=== PATIENT | male | born 1995 | race Caucasian/White ===

== ENCOUNTER 2017-03-05 08:19 | Day surgery (SDC) | payer BC ==
[~2017-03-05] VITALS: Ht 348 cm; Wt 101.0 kg
[2017-03-05] VITALS (14 sets, daily range): BP systolic 106–136; BP diastolic 46–71; PULSE 48–80; RESP 15–20; Ht 348 cm; Wt 101.0 kg
[2017-03-05] MEDS ORDERED: D-ME473S2 PO (08:46)
[2017-03-05] MEDS ORDERED: ALBU8.5H3 INH (08:46)
[2017-03-05 09:20] LABS: BASOPHILS % 0.6 % (0.0-2.0); EOSINOPHILS # 0.1 10^3/ul (0.0-0.5); EOSINOPHILS % 1.4 % (0.0-7.0); HEMATOCRIT 42.5 % (42.0-52.0); HEMOGLOBIN 15.2 g/dl (14.0-18.0); LYMPHOCYTES # 1.7 10^3/ul (0.8-2.9); LYMPHOCYTES % 24.4 % (18.0-55.0); MEAN CORPUSCULAR HEMOGLOBIN 32.5 pg (29.0-33.0); MEAN CORPUSCULAR HGB CONC 35.8 g/dl (32.0-37.0); MEAN PLATELET VOLUME 9.8 fl (7.4-10.4); MONOCYTE # 0.5 10^3/ul (0.3-0.9); MONOCYTES % 6.9 % (0.0-13.0); NEUTROPHIL # 4.7 10^3/ul (1.6-7.5); NEUTROPHILS % 66.3 % (30.0-74.0); PLATELET COUNT 279 10^3/UL (140-415); RED BLOOD COUNT 4.67 10^6/ul (4.70-6.10); RED CELL DISTRIBUTION WIDTH 12.7 % (11.5-14.5); WHITE BLOOD COUNT 7.1 10^3/ul (4.8-10.8)
[2017-03-05] MEDS ORDERED: PROCHLORPERAZINE 10 MG INJ IV PRN (09:30)
[2017-03-05] MEDS ORDERED: HYDROmorphONE (0.2 MG/ML) 10ML SYG IV PRN (09:30)
[2017-03-05] MEDS ORDERED: ONDANSETRON 4 MG INJ IV PRN (09:30)
[2017-03-05] MEDS ORDERED: FENTAnyl 50 MCG/ML VIAL IV PRN (09:30)
[2017-03-05] MEDS ORDERED: OXYCODONE/ACETAMINOPHEN (5/325) TAB PO PRN (09:30)
[2017-03-05] MEDS ORDERED: DIPHENHYDRAMINE 50 MG INJ IV PRN (09:30)
[2017-03-05] MEDS ORDERED: MEPERIDINE 25 MG INJ IV PRN (09:30)
[2017-03-05 09:32] LABS: ALBUMIN 5.2 g/dl (3.3-4.9); ALBUMIN/GLOBULIN RATIO 1.44; BILIRUBIN,INDIRECT 0.3 mg/dl (0-1.1); BILIRUBIN,TOTAL 0.3 mg/dl (0.2-1.3); TOTAL PROTEIN 8.8 g/dl (6.1-8.1)
[2017-03-05] MEDS ORDERED: FENTAnyl 50 MCG/ML VIAL ONE (09:42)
[2017-03-05] MEDS ORDERED: LIDOCAINE 2% (SDV) 5 ML INJ ONE (09:42)
[2017-03-05] MEDS ORDERED: MIDAZOLAM 1 MG/ML 2 ML INJ ONE (09:42)
[2017-03-05] MEDS ORDERED: PROPOFOL 20 ML ONE (09:42)
[2017-03-05 09:50] LABS: CALCIUM 10.2 mg/dl (8.4-10.2); CREATININE 0.78 mg/dl (0.61-1.24); POTASSIUM 4.3 mmol/L (3.5-5.1)
[2017-03-05 09:59] LABS: PROTIME 12.6 Sec (12.2-14.2)
[2017-03-05 10:00] LABS: INR 0.94
[2017-03-05] MEDS ORDERED: CEFAZOLIN 1 GM INJ ONE (10:00)
[2017-03-05] MEDS ORDERED: ONDANSETRON 4 MG INJ ONE (10:00)
[2017-03-05] MEDS ORDERED: METOCLOPRAMIDE 10 MG INJ ONE (10:00)
--- NOTE | 2017-03-05 10:31 | OPR ---
Date/Time of Note Date/Time of Note DATE: 03/05/17 TIME: 10:29 Operative Report Preoperative Diagnosis hematuria Postoperative Diagnosis hematuria, urethral stricture, bladder lesion Operation/Procedure Performed cysto, urethral dialtion, removal small bladder lesion Surgeon: MARLY MEJIA Anesthesia: general Estimated Blood Loss: none Specimens bladder - posterior wall Complications: None MARLY MEJIA Mar 05, 2017 10:31
--- NOTE | 2017-03-05 10:32 | PDOCDIS ---
Discharge Instructions CONDITION Patient Condition: Good HOME CARE INSTRUCTIONS: Diet Instructions: Regular ACTIVITY: Activity Restrictions: No Restrictions FOLLOW UP/APPOINTMENTS Follow-up Plan 2 weeks, calll for time OTHER ORDERS: Other Orders: dc to home when awake and stable, does not need to void before going home SCHOOL/WORK RELEASE May return to School/Work on: Mar 19, 2017 MARLY MEJIA Mar 05, 2017 10:32
--- NOTE | 2017-03-05 11:28 | HP ---
DATE OF ADMISSION: 03/05/2017 HISTORY OF PRESENT ILLNESS: Angel is a 21-year-old male who noted microhematuria. Denies any history of gross hematuria. The patient has autism, previously underwent a CT scan of the upper tracts which raises the question of a punctate calculi. Additionally a heterogeneous prostate was noted. The patient has been unable to tolerate a cystoscopy in the office and he now presents for cysto under anesthesia, possible bladder biopsy. PAST MEDICAL HISTORY: Autism. PAST SURGICAL HISTORY: None. FAMILY HISTORY: Noncontributory. SOCIAL HISTORY: The patient does not smoke. Patient does not think. ALLERGIES: HE HAS NO ALLERGIES. MEDICATIONS: None. PHYSICAL EXAMINATION: LUNGS: Good breath sounds bilaterally. HEART: Regular rate and rhythm. ABDOMEN: Soft, nondistended, nontender. No palpable masses. BACK: No CVA tenderness. No masses. GENITALIA: Normal shaft of penis. Normal testicles. IMPRESSION: Micro hematuria. PLAN: Cystoscopy under anesthesia with possible biopsy. How the procedure is performed, potential complications, side-effects, potential for perforation, tear of the urethra, urinary retention, infection, bleeding, possible secondary procedure or injury to other organs have all been reviewed. They understand the above and would like to proceed. Dictated By: Thanh Da Silva MD /anna/buzz /Document#: [id number]
--- NOTE | 2017-03-05 12:30 | OPR ---
DATE OF OPERATION: 03/05/2017 PREOPERATIVE DIAGNOSIS: Microhematuria. POSTOPERATIVE DIAGNOSES: 1. Microhematuria. 2. Urethral stricture. 3. Bladder lesion. PROCEDURE: 1. Cystoscopy. 2. Urethral dilatation. 3. Removal of small bladder lesion on posterior wall. SURGEON: Thanh Da Silva MD ANESTHESIA: General. COMPLICATIONS: None. BLOOD ADMINISTRATION: None. DRAINS: None. OPERATIVE FINDINGS AT SURGERY: Urethral stricture and bladder lesion. HISTORY: The patient is a 22-year-old male with microhematuria and autism, presents for cystoscopy under anesthesia, possible bladder biopsy. The procedure performed, risks, potential complications have been reviewed with the patient and his parents. They would like to proceed. PROCEDURE: Patient was brought into the operating room and placed on operating room table in a supine lithotomy position. He was prepped and draped usual fashion, after anesthesia was induced. A time-out was undertaken, and pressure points were padded. He received preoperative antibiotic therapy and sequential compression devices were applied. Rigid cystoscopy was undertaken with 12-degree, 30-degree and 70- degree angle lens in the anterior urethra. Urethral stricture was identified, and subsequently dilated with male sounds which then allowed for repeat cystoscopy. The prostate was within normal limits. There is mild enlargement of the lateral lobes. The bladder was inspected in a systematic fashion. Bilateral ureteral orifices within normal limits. The bladder was inspected in a systematic fashion. On the posterior wall was raised, irregular, small erythematous region which was biopsied and then coagulated. No other portions of the lesion could then be appreciated. Bladder was reinspected. No other abnormalities could be appreciated. There were no foreign bodies or discrete papillary tumor. No active bleeding could be appreciated. His bladder was emptied, and he was transferred to recovery room in stable condition. Discharged to home on Tylenol number 3, 1-2 tabs p.o. Q 8 hours, dispense number 20, no refills. He will follow up in the office in 2 weeks' time to discuss pathology results. Further intervention and evaluation pending clinical course and results of above. Dictated By: Thanh Da Silva MD /anna/ec /Document#: [id number]
== END 2017-03-05 12:27 | disposition home or self-care (01) ==
LOC: SDS 08:19
PROVIDERS: ATTEND Urology
DX: R31.29 Other microscopic hematuria (principal); N35.9 Urethral stricture, unspecified; J45.909 Unspecified asthma, uncomplicated
CPT/HCPCS: 52224; 52281; 80053; 85025; 85610; 85730; 88305; J0690; J2250; J2405; J2765; J3010; Z7512; Z7610